=== PATIENT | female | born 2005 | race Caucasian/White ===

== ENCOUNTER 2024-04-28 08:59 | Emergency (ER) | payer OTHER, SELFPAY ==
--- NOTE | ~2024-04-28 | CT_ITS ---
EXAMINATION: CT ABDOMEN AND PELVIS WITHOUT CONTRAST CLINICAL INFORMATION: Left flank pain, stone versus hydro- COMPARISON: None available. TECHNIQUE: Multidetector volumetric imaging was performed of the abdomen and pelvis following without contrast. No oral contrast material.. Sagittal and coronal reformatted images were obtained on the technologist's workstation. This CT examination was performed using dose optimization techniques as appropriate, variously including the following: *Automated exposure control *Adjustment of mA and/or kV according to patient size (this includes techniques or standardized protocols for targeted exams where dose is matched to indication/reason for exam; i.e. extremities or head) *Use of iterative reconstruction technique DLP: 223 mGy-cm FINDINGS: LUNG BASES: The visualized lung bases are unremarkable. LIVER, GALLBLADDER, AND BILIARY TREE: The liver is normal in size, shape, and attenuation. No focal hepatic lesion or biliary ductal dilatation is present. The gallbladder is unremarkable with no evidence of radiopaque gallstones, gallbladder wall thickening, or obvious pericholecystic inflammatory changes. PANCREAS: Unremarkable SPLEEN: Unremarkable ADRENAL GLANDS: Unremarkable KIDNEYS AND URETERS: The kidneys are normal in size, shape, and attenuation. No hydronephrosis, hydroureter, or calculi seen. No perinephric stranding. BLADDER: Unremarkable GASTROINTESTINAL TRACT: The small and large bowel are unremarkable. The appendix is not visualized. ABDOMINAL WALL: No significant hernia is appreciated. LYMPH NODES: Normal VASCULAR: Unremarkable PELVIC VISCERA: Unremarkable OSSEOUS STRUCTURES: Unremarkable CT/CT abdomen pelvis wo IV con IMPRESSION: Unremarkable noncontrast abdominal and pelvic CT. In particular, no renal calculus or obstructive uropathy is evident. Fleischner guidelines were followed. Electronically signed by: Stephan Barnes MD 04/28/2024 10:13 AM [facility]
[2024-04-28 09:04] VITALS: BP 130/82; PULSE 100; RESP 18; TEMP 36.9; O2SAT 100; BMI 18.3
--- NOTE | 2024-04-28 09:20 | ED.FEMALEGU ---
HPI - Female Genitourinary General Chief complaint: Urogenital-Female Stated complaint: Kidney infection? Time Seen by Provider: 04/28/24 09:16 Source: patient Mode of arrival: ambulatory Limitations: no limitations History of Present Illness ED Provider: TASNEEM NOBLES PA-C HPI Narrative: 19 year old female presents to the ED today for evaluation of left flank pain since 04/22/24. States the pain is constant, ranging from 3/10 to 7/10 in severity. No radiation to abdomen or groin. Admits to assoc nausea and vomiting which began yesterday. She has been taking motrin with minimal relief. Last dose yesterday. She was evaluated at urgent care 2 days ago with urine negative for infection however was placed on an antibiotic anyway. Denies fever, chills, abdominal pain, dysuria, hematuria, vaginal discharge, diarrhea, constipation. She states she is not sexually active. Denies concern for STI or . No known sick contacts. Endorses history of right-sided renal stones however that pain was more severe than current left flank pain. She was able to pass previous stones. Related Data Previous Rx's ?Medication ?Instructions ?Recorded cefuroxime axetil 250 mg tablet 500 mg (2 x 250 mg) PO BID 7 days 04/28/24 #28 tabs ondansetron 4 mg disintegrating 4 mg PO DAILY PRN nausea and 04/28/24 tablet vomiting 5 days #7 tabs Allergies Allergy/AdvReac Type Severity Reaction Status Date / Time No Known Allergies Allergy Verified 04/28/24 09:06 Review of Systems Review of Systems: Constitutional: No fever, chills, fatigue, night sweats, weight changes ENT/Mouth: No ear pain, hearing loss, nasal congestion, sinus pain, rhinorrhea, sore throat Eyes: No eye pain, swelling, redness, vision changes, discharge Cardio: No chest pain, palpitations, RENTERIA, orthopnea, peripheral edema Pulm: No SOB, cough, sputum, wheezing, dyspnea, hemoptysis GI: No hematemesis, abdominal pain, diarrhea, constipation, hematochezia, melena, +N/V : No irregular bleeding, dysuria, frequency, urgency, hesitancy, hematuria, urinary flow changes, urinary incontinence or retention, +L flank pain MSK: No back pain, neck pain, joint pain, myalgias Skin: No lesions, rashes Neuro: No weakness, numbness, paresthesias, LOC, dizziness, headache Psych: No anxiety/panic, depression, SI/HI, AH/VH All other systems reviewed and are negative. [facility] Past Medical History Attestation statement: The following information was validated with the patient. Source: old records reviewed and nursing notes reviewed Social History Social History Smoked in Last 30 Days: No Use of substances other than those prescribed or required for medical reasons: No Advance Directives: No Patient : No Physical Exam Vital Signs: Vital Signs: Last Vital Signs Temp 98.3 F 04/28/24 13:03 Pulse 63 04/28/24 13:03 Resp 13 04/28/24 13:03 BP 99/63 04/28/24 13:03 Pulse Ox 99 04/28/24 13:03 O2 Del Method Room Air 04/28/24 13:03 BMI result Body Mass Index 18.3 vital signs stable, afebrile General: Well appearing, in no acute distress. Skin: Warm, dry, intact. No rashes or lesions. Head: Normocephalic, atraumatic. EENT: Hearing is intact b/l. Conjunctiva clear. PERRLA. EOM intact. Moist mucous membranes.? Neck: Supple without LAD Cardiac: Chest wall symmetric. RRR Lungs: Normal respiratory effort without accessory muscle use. CTA bilaterally Abdomen: Soft, non-tender, non-distended. No rebound tenderness or guarding. Positive BS x4. No CVAT b/l. Back: No midline spinous or paraspinal tenderness. No step off deformity. Ext: Upper and lower extremities atraumatic, without tenderness, deformity, swelling or erythema. Full ROM throughout. Neuro: AOx3. Normal speech. Strength 5/5 intact throughout. No saddle anesthesia. Sensation intact to light touch. NV intact distally. Ambulating with steady gait. Psych: Appropriate mood and affect. Responds appropriately to questions. Course Course Course Narrative: 1010 -- CBC without leukocytosis however there is a left shift. microcytica anemia, no priors to compare to. H&H above transfusion threashold. no concern for acute blood loss. chemistry without acute electrolyte abnormality requiring intervention. BUN WNL however creatinine elevated to 1.55. Liver enzymes WNL. Urine negative. Urinalysis pending. CT pending. > Toradol provider for pain control and Zofran given for nausea control. Will give 1 L of fluids for elevated creatinine. Concern for renal pathology. Will await CT results. 1325 -- CT abd/pelvis unremarkable. there is no evidence of renal stone/ hydronephrosis. negative for covid/ flu/ rsv. UA positive for infection. > on re-eval, patient reports improvement in pain/ nausea. she is tolerating crackers and gingerale. will send ceftin to pharmacy for treatment. zofran sent for nausea. Patient has remained stable throughout ED visit today. Discussed worrisome signs and symptoms and when to return to the ED. All questions answered at this time. Patient is agreeable with disposition and stable for discharge. Medications Administered Discontinued Medications Generic Name Dose Route Start Last Admin Trade Name Freq PRN Reason Stop Dose Admin Sodium Chloride 1,000 mls @ 999 mls/hr 04/28/24 10:00 04/28/24 11:51 Ns IV 04/28/24 11:00 Infused .Q1H1M LO Infusion Ketorolac Tromethamine 15 mg 04/28/24 09:46 04/28/24 10:18 Ketorolac Tromethamine 15 Mg/Ml Vial IVPUSH 04/28/24 09:47 15 mg ONCE ONE Administration Ondansetron HCl 4 mg 04/28/24 09:46 04/28/24 10:18 Ondansetron Hcl 4 Mg/2 Ml Vial IVPUSH 04/28/24 09:47 4 mg ONCE ONE Administration Ondansetron HCl 4 mg 04/28/24 12:44 04/28/24 13:06 Ondansetron Odt 4 Mg Tab.Rapdis TRANSLINGU 04/28/24 12:45 4 mg ONCE ONE Administration Medical Decision Making Medical Decision Making MDM Narrative: 19 year old female presents to the ED today for evaluation of left flank pain since 04/22/24. Vital signs are stable. She is nontoxic appearing and in NAD however is holding emesis bag. No active vomiting. On exam, abdomen is soft, nondistended, nontender to palpation, no rebound tenderness or guarding. There is no CVAT bilaterally. Normoactive bowel sounds x4. skin w/d/i. Differential diagnosis includes anemia, electrolyte abnormality, CALLI, dehydration, UTI, IUP, nephrolithiasis, renal colic, hydronephrosis, msk sprain/ strain, constipation, gastroenteritis. Lower suspicion for vertebral fracture, pyelonephritis, diverticulosis/ diverticulitis. Presentation not consistent with cauda equina, Guillain-[place], epidural abscess, cord compression, appendicitis, cholecystitis. Plan for labs, UA, CT, IVF, pain control, re-evaluation. Differential Diagnosis Differential Diagnoses: The differential diagnosis associated with the presentation includes as above. Admission/Observation Not indicated, Lab Data MDM Lab Attestation statement: I reviewed the patient's lab results. as above. 04/28/24 09:17 04/28/24 09:17 Labs: Lab Results 04/28/24 04/28/24 04/28/24 Range/Units 09:17 09:26 11:20 WBC 10.3 (4.8-10.8) X10*3/uL RBC 4.93 (4.20-5.50) X10*6/uL Hgb 11.2 L (12.0-16.0) g/dl Hct 36.5 L (37.0-47.0) % MCV 74.0 L (80.0-98.0) fL MCH 22.7 L (27.0-33.0) pg MCHC 30.7 L (31.0-35.0) g/dl RDW 15.7 (11.0-16.0) % Plt Count 341 (160-400) X10*3/uL MPV 10.0 (9.4-12.3) fL Immature Gran % (Auto) 0.3 (0.0-0.4) % Neut % (Auto) 81.6 H (45-73) % Lymph % (Auto) 8.0 L (20-40) % Nelson % (Auto) 9.6 (2-11) % Eos % (Auto) 0.3 (0-4) % Baso % (Auto) 0.2 (0-2) % Lymph # (Auto) 0.8 L (1.2-4.9) X10*3/uL Nelson # (Auto) 1.0 (0.1-1.2) X10*3/uL Eos # (Auto) 0.0 (0.0-0.4) X10*3/uL Baso # (Auto) 0.0 (0.0-0.2) X10*3/uL Abs Immat Gran (auto) 0.03 (0.00-0.03) X10*3/uL Absolute Neuts (auto) 8.4 H (2.0-8.3) x10*3/uL Absolute Nucleated RBC 0.000 (0.0-0.012) X10*3/uL Nucleated RBC % (auto) 0.0 (0.0-0.2) /100WBC Sodium 141 (135-145) mmol/L Potassium 3.9 (3.3-5.1) mmol/L Chloride 109 H (96-108) mmol/L Carbon Dioxide 22 (22-29) mmol/L Anion Gap 14 (12-20) BUN 15 (9-16) mg/dL Creatinine 1.55 H (0.5-1.4) mg/dL Estim Creat Clear Calc 38.9 Estimated GFR 43 Random Glucose 99 (60-115) mg/dL Calcium 10.1 (8.4-10.2) mg/dL Total Bilirubin 0.3 (0.0-1.0) mg/dL AST 23 (5-31) U/L ALT 7 (0-31) U/L Alkaline Phosphatase 58 (39-117) U/L Total Protein 8.1 H (6.5-8.0) g/dL Albumin 4.4 (3.5-5.0) g/dL Urine Color Cancelled Yellow Urine Appearance Cancelled Clear Urine pH Cancelled 6.5 Ur Specific [place] Cancelled 1.010 Urine Protein Cancelled 100 (2+) H Urine Glucose (UA) Cancelled Negative Urine Ketones Cancelled Negative Urine Blood Cancelled Negative Urine Nitrite Cancelled Negative Ur Leukocyte Esterase Cancelled Small (1+) H Urine RBC 0-2 (0-2) /HPF Urine WBC 21-50 H (0-5) /HPF Ur Squamous Epith Cells 11-20 (0-2) /HPF Urine Bacteria 4+ (None Seen) Hyaline Casts 3-5 (0-2) /LPF Urine Test NEGATIVE (NEGATIVE) Influenza Type A (PCR) (Negative) Influenza Type B (PCR) (Negative) RSV RNA Qual (PCR) (Negative) SARS-CoV-2 RNA (RT-PCR) (Negative) 04/28/24 Range/Units 11:56 WBC (4.8-10.8) X10*3/uL RBC (4.20-5.50) X10*6/uL Hgb (12.0-16.0) g/dl Hct (37.0-47.0) % MCV (80.0-98.0) fL MCH (27.0-33.0) pg MCHC (31.0-35.0) g/dl RDW (11.0-16.0) % Plt Count (160-400) X10*3/uL MPV (9.4-12.3) fL Immature Gran % (Auto) (0.0-0.4) % Neut % (Auto) (45-73) % Lymph % (Auto) (20-40) % Nelson % (Auto) (2-11) % Eos % (Auto) (0-4) % Baso % (Auto) (0-2) % Lymph # (Auto) (1.2-4.9) X10*3/uL Nelson # (Auto) (0.1-1.2) X10*3/uL Eos # (Auto) (0.0-0.4) X10*3/uL Baso # (Auto) (0.0-0.2) X10*3/uL Abs Immat Gran (auto) (0.00-0.03) X10*3/uL Absolute Neuts (auto) (2.0-8.3) x10*3/uL Absolute Nucleated RBC (0.0-0.012) X10*3/uL Nucleated RBC % (auto) (0.0-0.2) /100WBC Sodium (135-145) mmol/L Potassium (3.3-5.1) mmol/L Chloride (96-108) mmol/L Carbon Dioxide (22-29) mmol/L Anion Gap (12-20) BUN (9-16) mg/dL Creatinine (0.5-1.4) mg/dL Estim Creat Clear Calc Estimated GFR Random Glucose (60-115) mg/dL Calcium (8.4-10.2) mg/dL Total Bilirubin (0.0-1.0) mg/dL AST (5-31) U/L ALT (0-31) U/L Alkaline Phosphatase (39-117) U/L Total Protein (6.5-8.0) g/dL Albumin (3.5-5.0) g/dL Urine Color Urine Appearance Urine pH Ur Specific [place] Urine Protein Urine Glucose (UA) Urine Ketones Urine Blood Urine Nitrite Ur Leukocyte Esterase Urine RBC (0-2) /HPF Urine WBC (0-5) /HPF Ur Squamous Epith Cells (0-2) /HPF Urine Bacteria (None Seen) Hyaline Casts (0-2) /LPF Urine Test (NEGATIVE) Influenza Type A (PCR) NEGATIVE (Negative) Influenza Type B (PCR) NEGATIVE (Negative) RSV RNA Qual (PCR) NEGATIVE (Negative) SARS-CoV-2 RNA (RT-PCR) NEGATIVE (Negative) Independent Interpretation I performed an independent interpretation of an: CT Scan Interpretation: ct abd/pelvis w/o obstructing stone Radiology Impression Discussion of test interpretation with radiology: I have reviewed the radiologist's reading. Radiologist Impression: EXAMINATION: CT ABDOMEN AND PELVIS WITHOUT CONTRAST CLINICAL INFORMATION: Left flank pain, stone versus hydro- COMPARISON: None available. TECHNIQUE: Multidetector volumetric imaging was performed of the abdomen and pelvis following without contrast. No oral contrast material.. Sagittal and coronal reformatted images were obtained on the technologist's workstation. This CT examination was performed using dose optimization techniques as appropriate, variously including the following: *Automated exposure control *Adjustment of mA and/or kV according to patient size (this includes techniques or standardized protocols for targeted exams where dose is matched to indication/reason for exam; i.e. extremities or head) *Use of iterative reconstruction technique DLP: 223 mGy-cm FINDINGS: LUNG BASES: The visualized lung bases are unremarkable. LIVER, GALLBLADDER, AND BILIARY TREE: The liver is normal in size, shape, and attenuation. No focal hepatic lesion or biliary ductal dilatation is present. The gallbladder is unremarkable with no evidence of radiopaque gallstones, gallbladder wall thickening, or obvious pericholecystic inflammatory changes. PANCREAS: Unremarkable SPLEEN: Unremarkable ADRENAL GLANDS: Unremarkable KIDNEYS AND URETERS: The kidneys are normal in size, shape, and attenuation. No hydronephrosis, hydroureter, or calculi seen. No perinephric stranding. BLADDER: Unremarkable GASTROINTESTINAL TRACT: The small and large bowel are unremarkable. The appendix is not visualized. ABDOMINAL WALL: No significant hernia is appreciated. LYMPH NODES: Normal VASCULAR: Unremarkable PELVIC VISCERA: Unremarkable OSSEOUS STRUCTURES: Unremarkable CT/CT abdomen pelvis wo IV con IMPRESSION: Unremarkable noncontrast abdominal and pelvic CT. In particular, no renal calculus or obstructive uropathy is evident. Fleischner guidelines were followed. Electronically signed by: Stephan Barnes MD 04/28/2024 10:13 AM [facility] [place] Prescription Management I considered prescription management with: Antibiotic (ceftin) and Other (zofran) Social Determinants Patient?s care significantly limited by Social Determinants of Health including: Other Social Determinant of Health Critical Care Time Critical Care Time Critical Care Time: No Discharge Plan Discharge Clinical Impression: Urinary tract infection Patient Disposition: Home, Self-Care Instructions: Urinary Tract Infection in Women (ED) Additional Instructions: Your blood work today is reassuring. There was a slight elevation in your kidney function likely secondary to dehydration. You were provided with IV fluids in ED today. You tested negative for covid, flu, rsv. Your urine test was negative. Your urine shows infection. Ceftin is an antibiotic that has been sent to your pharmacy. Take this as prescribed to completion do treat infection. Zofran is a medication that has been sent to your pharmacy for you to take for nausea. Take tylenol as needed for pain/ discomfort. Follow up with PCP. If you do not have one, a referral has been provided. please call them to establish care. they will not call you. return with new or worsening symptoms. in the case of an emergency call 911. Prescriptions: New cefuroxime axetil 250 mg tablet 500 mg PO BID 7 Days Qty: 28 0RF ondansetron 4 mg tablet,disintegrating 4 mg PO DAILY PRN (Reason: nausea and vomiting) 5 Days Qty: 7 0RF Referrals: [facility] Family Medicine [Provider Group] [facility] [Provider Group] [facility] [Provider Group] Stand Alone Forms: Work/School Release Print Language: Greenlandic
[2024-04-28 09:29] LABS: MANUAL DIFF FLAG NO
[2024-04-28 09:31] LABS: Basophils Percent Auto 0.2 % (0-2); Eosinophils Percent Auto 0.3 % (0-4); Hematocrit 36.5 % (37.0-47.0); Hemoglobin 11.2 g/dl (12.0-16.0); Imm Gran Abs Auto 0.03 X10*3/uL (0.00-0.03); Imm Gran Pct Auto 0.3 % (0.0-0.4); Lymphocytes Absolute Auto 0.8 X10*3/uL (1.2-4.9); Mean Corpuscular HGB Conc 30.7 g/dl (31.0-35.0); Mean Corpuscular Hemoglobin 22.7 pg (27.0-33.0); Monocytes Percent Auto 9.6 % (2-11); Neutrophils Absolute Auto 8.4 x10*3/uL (2.0-8.3); Neutrophils Percent Auto 81.6 % (45-73); Platelet Count 341 X10*3/uL (160-400); Red Blood Count 4.93 X10*6/uL (4.20-5.50); Red Cell Distribution Width 15.7 % (11.0-16.0); White Blood Count 10.3 X10*3/uL (4.8-10.8)
[2024-04-28 09:32] LABS: UPreg QC Valid YES; Urine Pregnancy NEGATIVE (NEGATIVE)
[2024-04-28 09:46] LABS: Alanine Aminotransferase 7 U/L (0-31); Albumin Level 4.4 g/dL (3.5-5.0); Alkaline Phosphatase 58 U/L (39-117); Anion Gap 14 (12-20); Aspartate Amino Transferase 23 U/L (5-31); Bilirubin Total 0.3 mg/dL (0.0-1.0); Blood Urea Nitrogen 15 mg/dL (9-16); Calcium 10.1 mg/dL (8.4-10.2); Carbon Dioxide 22 mmol/L (22-29); Chloride 109 mmol/L (96-108); Creatinine Clr Calc Pharmacy 38.9; Estimated Glomerular Filt Rate 43; Glucose Random 99 mg/dL (60-115); Potassium 3.9 mmol/L (3.3-5.1); Sodium 141 mmol/L (135-145); Total Protein 8.1 g/dL (6.5-8.0)
[2024-04-28] MEDS: ondansetron HCL 4 MG/2 ML VIAL IVPUSH (10:18)
[2024-04-28] MEDS: 0.9 % Sodium Chloride 1,000 ML 999 ML IV (10:18)
[2024-04-28] MEDS: Ketorolac Tromethamine 15 MG/ML VIAL IVPUSH (10:18)
[2024-04-28 11:06] VITALS: BP 113/71; PULSE 60; RESP 18; TEMP 37.1; O2SAT 100
[2024-04-28 11:29] LABS: Appearance Urine Clear; Color Urine Yellow; Glucose Urine UA Negative (Negative); Leukocyte Esterase Urine Small (1+) (Negative); Nitrite Urine Negative (Negative); PH 6.5 (5.0-9.0); UMIC TRIGGER UACC YES; Urine Blood Negative (Negative); Urine Ketones Negative (Negative); Urine Protein 100 (2+) mg/dL (Neg-Trace)
[2024-04-28 11:43] LABS: Bacteria Urine 4+ (None Seen); RBC Urine 0-2 /HPF (0-2); UACC Culture Trigger YES; WBC Urine 21-50 /HPF (0-5)
[2024-04-28 13:03] VITALS: BP 99/63; PULSE 63; RESP 13; TEMP 36.8; O2SAT 99
[2024-04-28 13:04] LABS: Influenza A PCR NEGATIVE (Negative); Influenza B PCR NEGATIVE (Negative); Resp Syncy Virus RNA Qual PCR NEGATIVE (Negative); SARS COV2 PCR INHOUSE NEGATIVE (Negative)
[2024-04-28] MEDS: Ondansetron ODT 4 MG TAB.RAPDIS TRANSLINGU (13:06)
[2024-04-28 13:41] VITALS: BP 99/63; PULSE 63; RESP 13; TEMP 36.8; O2SAT 99
== END 2024-04-28 13:42 | disposition home or self-care (01) ==
PROVIDERS: Physician Assistant Medical; Emergency Provider Emergency Medicine
DX: N39.0 Urinary tract infection, site not specified (principal); R11.0 Nausea; R10.2 Pelvic and perineal pain; Z03.818 Encounter for observation for suspected exposure to other biological agents ruled out; Z79.899 Other long term (current) drug therapy
CPT/HCPCS: 0241U; 36415; 74176; 80053; 81001; 81025; 85025; 87086; 96361; 96374; 96375; 99284; J1885; J2405

== ENCOUNTER 2024-07-18 21:09 | Emergency (ER) | payer OTHER, SELFPAY ==
[2024-07-18 21:16] VITALS: BP 150/87; PULSE 90; O2SAT 100
[2024-07-18 21:18] VITALS: BP 118/73; PULSE 91; RESP 16; O2SAT 100; BMI 19.1
--- NOTE | 2024-07-18 21:39 | ED_ITS ---
HPI - Psych General Chief Complaint: Psychiatric Symptoms Stated Complaint: si Time Seen by Provider: 07/18/24 21:22 Source: patient and EMS Mode of arrival: EMS Limitations: no limitations History of Present Illness ED Provider: Dr. Rosio Buitrago HPI Narrative: Patient comes to the emergency room via ambulance from home, patient complaining of suicide attempt by using antibiotics. Patient states that she used ciprofloxacin, used approximately 10 tablets which she had left over from a previous kidney infection. Patient states that this is the 1st time that she got herself to actually hurt herself. Patient states that she has previous history of anxiety. Patient states that she had an argument with her father earlier today. At this time, patient complaining of nausea. Patient denies vomiting diarrhea or abdominal pain. Related Data Previous Rx's ?Medication ?Instructions ?Recorded cefuroxime axetil 250 mg tablet 500 mg (2 x 250 mg) PO BID 7 days 04/28/24 #28 tabs ondansetron 4 mg disintegrating 4 mg PO DAILY PRN nausea and 04/28/24 tablet vomiting 5 days #7 tabs Allergies Allergy/AdvReac Type Severity Reaction Status Date / Time No Known Allergies Allergy Verified 07/18/24 21:19 Review of Systems Review of Systems: Constitutional : No Weight loss, No Fever, No Chills, No Night Sweats, No Fatigue, No Malaise ENT/Mouth : No Hearing loss, No Ear Pain, No Nasal Congestion, No Sinus Pain, No Hoarseness, No sore throat, No Rhinorrhea, No Swallowing Difficulty Eyes: No Eye Pain, No Swelling, No Redness, No Foreign Body, No Discharge, No Vision Changes Cardiovascular : No Chest Pain, No SOB, No Dyspnea on Exertion, No Orthopnea, No Edema, No Palpitations Respiratory : No Cough, No Sputum, No Wheezing, No Smoke Exposure, No Dyspnea Gastrointestinal : Complaining of Nausea, No Vomiting, No Diarrhea, No Constipation, No abdominal Pain, No Hematochezia, No Melena Genitourinary : no irregular bleeding, No Dysuria, No Urinary Frequency, No Hematuria, No Urinary Incontinence, No Urgency, No Flank Pain, No Urinary Flow Changes, No Hesitancy Musculoskeletal : No joint pain, No Myalgias, No Joint Swelling Skin : No Skin Lesions, No rash Neuro : No Weakness, No Numbness, No Paresthesias, No Loss of Consciousness, No Dizziness, No Headache Psych : Complaining of anxiety, depression, suicide attempt, no HI Heme/Lymph: No Bruising, No Bleeding,No Lymphadenopathy Endocrine : No Polyuria, No Polydipsia, No Temperature Intolerance [facility] Past Medical History Medical History (Updated 07/18/24 @ 21:47 by Rosio Buitrago MD) Anxiety Social History Social History Do you have a plan to hurt others: No Plan Physical Exam Vital Signs: Vital Signs: Last Vital Signs Pulse 91 07/18/24 21:18 Resp 16 07/18/24 21:18 BP 118/73 07/18/24 21:18 Pulse Ox 100 07/18/24 21:18 O2 Del Method Room Air 07/18/24 21:18 BMI result Body Mass Index 19.1 Const: Other: Appearance: Alert. Oriented X3. No acute distress. Eyes: Pupils equal, round and reactive to light. ENT: Pharynx normal. Neck: Normal inspection. Neck supple. No lymph nodes noted. No crepitus CVS: Normal heart rate and rhythm. Pulses normal. Normal S1 and S2 Respiratory: No respiratory distress. Breath sounds normal. No Wheezing. No rales Abdomen: Soft and nontender. No rigidity. No distention. Skin: Skin warm and dry. Normal skin color. Normal skin turgor. Extremities: No lower extremity edema. No Lacerations. No Rash Neuro: Oriented X 3. No motor deficit. No sensory deficit. Moving all extremities. No slurred speech. CN 2 through 12 grossly intact Psych: calm, cooperative, flat affect Course Course Course Narrative: All of patient's labs pending Poison control has been contacted Care team consult pending Patient on a Section 12 Physician observation started at 21:45 Medical Decision Making Differential Diagnosis Differential Diagnoses: The differential diagnosis associated with the presentation includes (Anxiety, depression polysubstance abuse suicidal ideation) Admission/Observation Consideration of admission/observation: Escalation of care including admission/observation considered (Patient is waiting to be seen by the care team) Discharge Plan Discharge Clinical Impression: Suicidal ideation Patient Disposition: Still a Patient Prescriptions: No Action cefuroxime axetil 250 mg tablet 500 mg PO BID 7 Days Qty: 28 0RF ondansetron 4 mg tablet,disintegrating 4 mg PO DAILY PRN (Reason: nausea and vomiting) 5 Days Qty: 7 0RF Print Language: Urdu
[2024-07-18 21:53] LABS: Appearance Urine Turbid; Color Urine Yellow; Glucose Urine UA Negative (Negative); Leukocyte Esterase Urine Negative (Negative); Nitrite Urine Negative (Negative); Specific Gravity - Urine 1.025 (1.005-1.025); UMIC TRIGGER UACC YES; Urine Blood Small (1+) (Negative); Urine Ketones 15 mg/dL (Negative); Urine Protein 30 (1+) mg/dL (Neg-Trace)
[2024-07-18 21:56] LABS: UPreg QC Valid YES; Urine Pregnancy NEGATIVE (NEGATIVE)
[2024-07-18 21:58] LABS: MANUAL DIFF FLAG NO
[2024-07-18 22:00] LABS: Basophils Percent Auto 0.6 % (0-2); Eosinophils Percent Auto 0.6 % (0-4); Hematocrit 32.2 % (37.0-47.0); Hemoglobin 9.9 g/dl (12.0-16.0); Imm Gran Abs Auto 0.01 X10*3/uL (0.00-0.03); Imm Gran Pct Auto 0.2 % (0.0-0.4); Lymphocytes Absolute Auto 1.3 X10*3/uL (1.2-4.9); Lymphocytes Percent Auto 24.3 % (20-40); Mean Corpuscular HGB Conc 30.7 g/dl (31.0-35.0); Mean Corpuscular Hemoglobin 22.3 pg (27.0-33.0); Mean Corpuscular Volume 72.5 fL (80.0-98.0); Mean Platelet Volume 9.8 fL (9.4-12.3); Monocytes Absolute Auto 0.6 X10*3/uL (0.1-1.2); Monocytes Percent Auto 12.1 % (2-11); Neutrophils Absolute Auto 3.2 x10*3/uL (2.0-8.3); Neutrophils Percent Auto 62.2 % (45-73); Platelet Count 349 X10*3/uL (160-400); Red Blood Count 4.44 X10*6/uL (4.20-5.50); Red Cell Distribution Width 14.8 % (11.0-16.0); White Blood Count 5.1 X10*3/uL (4.8-10.8)
--- NOTE | 2024-07-18 22:02 | ECG_ITS ---
Test Reason : attempted od Blood Pressure : */* mmHG Vent. Rate : 68 BPM Atrial Rate : 68 BPM P-R Int : 138 ms QRS Dur : 100 ms QT Int : 396 ms P-R-T Axes : 60 46 45 degrees QTcB Int : 421 ms Normal sinus rhythm with sinus arrhythmia Normal ECG No previous ECGs available Referred By: Generic ED Physician Electronically Signed By: COLE KELLEY MD
[2024-07-18 22:04] LABS: Amphetamine Screen Urine Not Detected (Not Detect); Barbiturates, Urine Not Detected (Not Detect); Benzodiazepines Screen Urine Not Detected (Not Detect); Buprenorphine Scr Not Detected (Not Detect); Cannabinoid Screen Urine POSITIVE (Not Detect); Cocaine Screen Urine Not Detected (Not Detect); Fentanyl, urine Not Detected (Not Detect); Methadone Screen, Urine Not Detected (Not Detect); Opiate Screen Urine Not Detected (Not Detect); Oxycodone Screen Urine Not Detected (Not Detect); Phencyclidine Screen Urine Not Detected (Not Detect)
[2024-07-18 22:07] LABS: Bacteria Urine None Seen (None Seen); Hyaline Casts Urine 0-2 /LPF (0-2); WBC Urine 0-5 /HPF (0-5)
[2024-07-18 22:16] LABS: Anion Gap 12 (12-20)
[2024-07-18 22:19] LABS: Alanine Aminotransferase 7 U/L (0-31); Albumin Level 4.3 g/dL (3.5-5.0); Alkaline Phosphatase 45 U/L (39-117); Aspartate Amino Transferase 20 U/L (5-31); Bilirubin Direct 0.1 mg/dL (0.0-0.5); Bilirubin Total 0.3 mg/dL (0.0-1.0); Blood Urea Nitrogen 11 mg/dL (9-16); Calcium 9.2 mg/dL (8.4-10.2); Carbon Dioxide 22 mmol/L (22-29); Chloride 110 mmol/L (96-108); Creatinine Clr Calc Pharmacy 108.5; Estimated Glomerular Filt Rate > 60; Ethanol < 10 mg/dL; Glucose Random 79 mg/dL (60-115); Magnesium 1.8 mg/dL (1.6-2.6); Potassium 3.7 mmol/L (3.3-5.1); Sodium 140 mmol/L (135-145)
[2024-07-18 22:24] LABS: Acetaminophen LAB < 3 mcg/mL (<30); Salicylate < 5.0 mg/dL (15-30)
--- OUTSIDE RECORDS SUMMARY | 2024-07-18 22:45 | XMS_ITS | Data Portability ---
Author Organization JACQUIE Calvillo s, [address] Address [address] [place] [address] Assessment No assessment recorded. Plan of Treatment Reminders Order Date Submit Date Provider Last Modified By Organization Details Last Modified Time Details Appointments None recorded. Lab rapid flu (A+B) 2021 022 [email or web address] 1 _[facility], [address] [place] [address], [id number], 19:59:27 rapid SARS CoV 2 Ag, QL IA, respiratory specimen 2021 022 [email or web address] 1 [facility], [address] [place] [address], [id number], 19:59:27 mononucleos is, heterophile Ab, blood 2021 022 [email or web address] 1 [facility], [address] [place] [address], [id number], 19:59:27 Referral None recorded. Procedures None recorded. Surgeries None recorded. Imaging XR, foot, 3 or more view 2022 023 [place] [facility], [address] [place] [address], [place], [address], 20:35:53 Medication Orders Bactrim DS 800 mg-[address] tablet [address] [id number], [address] [facility] [place], [address], 18:16:30 Patient TargetsNo targets recorded. Patient Instructions Encounter Date Encounter Id Patient Instructions Last Modified By Organization Details Last Modified Time 06/14/2022 [id number] back spasm: care instructions [email or web address] Not available 06/14/2022 19:59:27 cellulitis: care instructions [email or web address] Not available 06/14/2022 20:00:50 ingrown toenail: care instructions [email or web address] Not available 06/14/2022 20:00:50 costochondritis: care instructions [email or web address] Not available 06/14/2022 19:59:27 viral respirator y infection: care instructions [email or web address] Not available 06/14/2022 19:59:27 08/18/2022 [id number] Overview Foot injuries that cause pain and swelling are fairly common. Almost all sports or home repair projects can cause a misstep that ends up as foot pain. Normal wear and tear, especially as you get older, also can cause foot pain. Most minor foot injuries will heal on their own, and home treatment is usually all you need to do. If you have a severe injury, you may need tests and treatment. Follow-up care is a maddox part of your treatment and safety. Be sure to make and go to all appointments, and call your doctor or nurse advice line (811 in most provinces and territories) if you are having problems. It's also a good idea to know your test results and keep a list of the medicines you take. How can you care for yourself at home? Take pain medicines exactly as directed. If the doctor gave you a prescription medicine for pain, take it as prescribed. If you are not taking a prescription pain medicine, ask your doctor if you can take an cqer-eru-dbatswl medicine. Rest and protect your foot. Take a break from any activity that may cause pain. Put ice or a cold pack on your foot for 10 to 20 minutes at a time. Put a thin cloth between the ice and your skin. Prop up the sore foot on a pillow when you ice it or anytime you sit or lie down during the next 3 days. Try to keep it above the level of your heart. This will help reduce swelling. Your doctor may recommend that you wrap your foot with an elastic bandage. Keep your foot wrapped for as long as your doctor advises. If your doctor recommends crutches, use them as directed. Wear roomy footwear. As soon as pain and swelling end, begin gentle exercises of your foot. Your doctor can tell you which exercises will help. When should you call for help? Call 911 anytime you think you may need emergency care. For example, call if: Your foot turns pale, white, blue, or cold. Call your doctor or nurse advice line now or seek immediate medical care if: You cannot move or stand on your foot. Your foot looks twisted or out of its normal position. Your foot is not stable when you step down. You have signs of infection, such as: Increased pain, swelling, warmth, or redness. Red streaks leading from the sore area. Pus draining from a place on your foot. A fever. Your foot is numb or tingly. Watch closely for changes in your health, and be sure to contact your doctor or nurse advice line if: You do not get better as expected. You have bruises from an injury that last longer than 2 weeks. [email or web address] Not available 08/18/2022 19:16:25 Reason for Referral None Reported. Results Created Date Observation Date Name Description Value Unit Range Abnormal Flag Note LastModifiedBy Organization Detail LastModifiedTime 06/14/20 22 06/14/2022 rapid SARS CoV 2 Ag, QL IA, respi rator y speci men Unknown Analyte Normal =Negat deonte Not Available [address], [address], 06/14/2022 19:14:37 06/14/20 22 06/14/2022 rapid SARS CoV 2 Ag, QL IA, respi rator y speci men Unknown Analyte negati ve Not Available [address] [place], [address], 06/14/2022 19:14:37 06/14/20 22 06/14/2022 rapid flu (A+B) Unknown Analyte Normal = Negati ve Not Available [address], [place], [address], 06/14/2022 19:14:31 06/14/20 22 06/14/2022 rapid flu (A+B) Unknown Analyte Normal = Negati ve Not Available [address] [place] [address], [place], [address], 06/14/2022 19:14:31 06/14/20 22 06/14/2022 rapid flu (A+B) Unknown Analyte negati ve Not Available [address] [place] [address], [place], [address], 06/14/2022 19:14:31 06/14/20 22 06/14/2022 rapid flu (A+B) Unknown Analyte negati ve Not Available [address] [place] [address], [address], 06/14/2022 19:14:31 06/14/20 22 06/14/2022 monon ucleo sis, heter ophil e Ab, blood Unknown Analyte Normal = Negati ve Not Available [address] [place] [address], [place], [address], 06/14/2022 19:14:44 06/14/20 22 06/14/2022 monon ucleo sis, heter ophil e Ab, blood Unknown Analyte negati ve Not Available [address] [place] [address], [address], 06/14/2022 19:14:44 08/18/19 23 08/18/2022 XR, foot, 3 or more view No observ ation record ed. [email or web address] [facility] [address] [facility] [place], [address], 08/19/2022 08:02:21 Result Notes None recorded. Problems No Known Problems Procedures Surgical History Date Name Laterality Status Provider Name and Address Organization Details Recorded Time 3 CRUTCHES-UND ERARM completed Alessandro Hilton, [employer]PERVIS[employer]TING [address], [place], [address], [place] - [facility] 08/18/2022 19:16:02 3 Imtiaz Bandage completed Alessandro Hilton NP [address], [place], [address], [place] - [facility] 08/18/2022 19:15:36 Imaging Results Imaging Date Name Status LastModified by Organiz ation Details LastModified Time 08/18/2022 XR, foot, 3 or more view completed [email or web address] [facility] [address] [place], [address], 08/19/2022 08:02:21 Procedure Notes None recorded. Medical Equipment None Reported. Allergies No known drug allergies Medications Not known to be on any medication Vitals Date Recorded Body height Provider Name an d Address Organization Details Last Updated DateTime 06/14/2022 152.4 cm Erica [facility] [place] - [facility] 1 08/15/2021 19:13:09 Date Recorded Body mass index (BMI) Body mass index (BMI) Percentile per age and sex Provider Name and Address Organization Details Last Updated DateTime 06/14/2022 17.9 kg/m2 7 % Erica Wilson PA - [facility] 06/14/2022 19:13:14 Date Recorded Body weight Provider Name an d Address Organization Details Last Updated DateTime 06/14/2022 10165.7 g Erica [facility] - [facility] 1 08/15/2021 19:13:15 Date Recorded Oxygen saturation Oxygen saturation in Arterial blood by Pulse oximetry Provider Name and Address Organization Details Last Updated DateTime 06/14/2022 99 % 99 % Erica Wilson PA - [facility] 06/14/2022 19:13:23 Date Recorded Pain severity - 0-10 verbal numeric rating [Score] - Reported Provider Name and Address Organization Details Last Updated DateTime 06/14/2022 6 [facility]a [facility] - [facility] 1 08/15/2021 19:13:29 Date Recorded Heart rate Provider Name an d Address Organization Details Last Updated DateTime 06/14/2022 79 /min Erica [facility] - [facility] 1 08/15/2021 19:13:32 Date Recorded Respiratory rate Provider Name a nd Address Organization Details Last Updated DateTime 06/14/2022 20 /min Erica Wilson PA - [facility] 1 08/15/2021 19:13:33 Date Recorded Body temperature Provider Name a nd Address Organization Details Last Updated DateTime 06/14/2022 98.4 [degF] Erica Wilson PA - [facility] 06/14/2022 19:13:37 Date Recorded Body height Provider Name an d Address Organization Details Last Updated DateTime 08/18/2022 152.4 cm Candie Jolley PA - [facility] 08/18/2022 18:16:07 Date Recorded Body mass index (BMI) Body mass index (BMI) Percentile per age and sex Provider Name and Address Organization Details Last Updated DateTime 08/18/2022 17.8 kg/m2 6 % Candie Hernandezlingmagdaleno PA - [facility] 08/18/2022 18:16:59 Date Recorded Body weight Provider Name an d Address Organization Details Last Updated DateTime 08/18/2022 43393.91 g Candielucius Woodmagdaleno PA - [facility] 08/18/2022 18:17:00 Date Recorded Pain severity - 0-10 verbal numeric rating [Score] - Reported Provider Name and Address Organization Details Last Updated DateTime 08/18/2022 7 Candie Hernandezlingmagdaleno PA - [facility] 08/18/2022 18:17:14 Date Recorded Oxygen saturation Oxygen saturation in Arterial blood by Pulse oximetry Provider Name and Address Organization Details Last Updated DateTime 08/18/2022 99 % 99 % Candie Jolley PA - [facility] 08/18/2022 18:18:55 Date Recorded Heart rate Provider Name an d Address Organization Details Last Updated DateTime 08/18/2022 76 /min Candie Hernandezlingmagdaleno PA - [facility] 08/18/2022 18:18:57 Date Recorded Respiratory rate Provider Name a nd Address Organization Details Last Updated DateTime 08/18/2022 18 /min Candie Jolley PA - [facility] 08/18/2022 18:18:59 Date Recorded Body temperature Provider Name a nd Address Organization Details Last Updated DateTime 08/18/2022 98.7 [degF] Candie Jolley PA - [facility] 08/18/2022 18:19:04 Date Recorded Systolic blood pressure Diastolic blood pressure Provider Name and Address Organization Details Last Updated DateTime 06/14/2022 122 mm[Hg] 76 mm[Hg] Erica Rachel PA - [facility] 06/14/2022 19:13:21 Date Recorded Systolic blood pressure Diastolic blood pressure Provider Name and Address Organization Details Last Updated DateTime 08/18/2022 101 mm[Hg] 69 mm[Hg] Candie Jolley PA - [facility] 08/18/2022 18:18:51 Social History Question Answer Notes LastModified by Organizat ion Details LastModified Time Tobacco Smoking Status Never Smoker Ericabette Carbajalkarmen fuentes PA - [facility] 06/14/2022 19:14:23 What Is Your Level Of Alcohol Consumption? None Information not available 06/14/2022 Have You Had Direct Contact, Or Contact During Intimacy, With Monkeypox Rash, Scabs, Or Body Fluids From A Person With Monkeypox? No Information not available 06/14/2022 Do You Use Any Illicit Or Recreational Drugs? No Information not available 06/14/2022 Have You Recently Traveled Abroad? No Information not available 06/14/2022 Do You Or Have You Ever Used Any Other Forms Of Tobacco Or Nicotine? No Information not available 06/14/2022 Sex: Unknown Functional Status None recorded. Mental Status None recorded. Family History Relationship Description Onset Age of this Age Resolved Age Notes LastModified by Organization Details LastModified Time Father No current problems or disability Not available 06/14 19:14:17 Mother No current problems or disability Not available 06/14 19:14:17 Medical History No medical history recorded. Gynecological HistoryNo gynecological history recorded. Obstetrics History GPAL:G 0 P 0 0 0 0 Immunizations Vaccine Type Date Status Note Provider Nam e and Address Organization Details Recorded Time COVID-19, mRNA, LNP-S, PF, 30 mcg/0.3 mL dose 1 completed Erica Wilson null, PA - [facility] 06/14/2022 19:13:56 COVID-19, mRNA, LNP-S, PF, 30 mcg/0.3 mL dose 1 completed Erica Wilson null, PA - [facility] 06/14/2022 19:13:56 HPV9 9 completed Candie Monfette null, PA - [facility] 08/18/2022 18:16:12 HPV9 8 completed Candie Monfette null, PA - [facility] 08/18/2022 18:16:12 MMR 9 completed Candie Monfette null, PA - [facility] 08/18/2022 18:16:12 MMR 5 completed Candie Monfette null, PA - [facility] 08/18/2022 18:16:12 Tdap 6 completed Candie Monfette null, PA - [facility] 08/18/2022 18:16:12 varicella 5 completed Candie Monfette null, PA - [facility] 08/18/2022 18:16:12 varicella 9 completed Candie Monfette null, PA - [facility] 08/18/2022 18:16:12 Hep B, adolescent or pediatric 4 completed Candie Monfette null, PA - [facility] 08/18/2022 18:16:12 Hep A, ped/adol, 2 dose 7 completed Candie Monfette null, PA - [facility] 08/18/2022 18:16:12 Hep A, ped/adol, 2 dose 6 completed Candie Monfette null, PA - [facility] 08/18/2022 18:16:12 Hib (PRP-T) 5 completed Candie Monfette null, PA - [facility] 08/18/2022 18:16:12 Hib (PRP-T) 5 completed Candie Monfette null, PA - [facility] 08/18/2022 18:16:12 Hib (PRP-T) 4 completed Candie Monfette null, PA - [facility] 08/18/2022 18:16:12 Hib (PRP-T) 5 completed Candie Monfette null, PA - [facility] 08/18/2022 18:16:12 meningococcal MCV4P 0 completed Candie Monfette null, PA - [facility] 08/18/2022 18:16:12 DTaP 6 completed Candie Monfette null, PA - [facility] 08/18/2022 18:16:12 DTaP 9 completed Candei Monfette null, PA - [facility] 08/18/2022 18:16:13 meningococcal MCV4, unspecified formulation 6 completed Candie Monfette null, PA - [facility] 08/18/2022 18:16:13 DTaP-Hep B-IPV 5 completed Candie Monfette null, PA - [facility] 08/18/2022 18:16:13 DTaP-Hep B-IPV 5 completed Candie Monfette null, PA - [facility] 08/18/2022 18:16:13 DTaP-Hep B-IPV 4 completed Candie Monfette null, PA - [facility] 08/18/2022 18:16:13 Past Encounters Encounter ID Performer Location Encounter Start Date Encounter Closed Date Diagnosis/Indication Diagnosis SNOMED-CT Code Diagnosis ICD10 Code Diagnosis Note [id number] [address] [address] 03/30/2020 09:27:45 03/30/2020 12:11:25 [id number] BIRDIE GOLDBERG MD [facility] [address] [place] [address] 06/14/2022 18:16:21 06/14/2022 20:03:24 Fatigue 82049417 R53.83 Acute uppe r respiratory infection 64723447 J06.9 If your symptoms worsen or persist you should be re-evaluat ed. Drink plenty of fluids Return to [facility] or see your primary care physician if your symptoms fail to improve in 5-7 days. You should follow up sooner if your symptoms worsen significan tly or if you develop new symptoms that concern you. Spasm of back muscles 20 2145967 M62.830 Apply a warm compress to the affected area for 15-20 minutes at a time up to 4 times a day. If your symptoms worsen or persist you should be re-evaluat ed. Follow up with your primary doctor for further evaluation in 5-10 days if your symptoms are not improving. Costal chondritis 136939 04 M94.0 You can take ibuprofen for your symptoms as directed on the bottle. Make sure to take it with food. Be careful about how much you take in one day. Taking more than the recommende d amount can cause stomach and kidney problems. If your symptoms worsen or persist you should be re-evaluat ed. Follow up with your primary doctor for further evaluation in 5-10 days if your symptoms are not improving. Call 911 or proceed to nearest Emergency Department if you deveolop shortness of breath, chest pain, or other symptoms that concern you. Cellulitis of toe of right foot [id number] L03.031 If your symptoms worsen or persist you should be re-evaluat ed. Return to [facility] or see your primary care physician if your symptoms fail to improve in 5-7 days. You should follow up sooner if your symptoms worsen significan tly or if you develop new symptoms that concern you. [id number] Alessandro Hilton NP [facility] [address] [place] [address] 08/18/2022 16:04:12 08/18/2022 19:23:09 Pain in left foot [id number] 44906 M79.672 Arthritis Vs contusion. Had anemia diagnosed . Not sure why she is getting pain . Strongly encouraged to follow up with PCP. Health Concerns Section Related Observation LastModified by Organization Detai ls LastModified Time None Recorded Concern Status LastModified by Organization Details LastModified Time None Recorded Advance Directives Directive None Recorded Payers Encounter Date Sequence Insurance Name Policy Number Policy Pelaez Covered Member ID Pelaez Member ID Guarantor Name 03/30/2020 1 [employer] - DOS PRIOR TO 2024 - [employer] () Vashti Narvaez [id number] Jen Piriz 06/14/2022 1 [facility] [id number] Vashti Narvaez [id number] Jen Piriz 08/18/2022 1 [facility] [id number] Vashti Narvaez [id number] Jen Piriz Notes Date Note Type Note Provider Name and Address Organization Details Recorded Time 2 text/html Shortness of BreathReported bypatient.source of patient informationsource of patient information patient Timingnew onset; 1 days Additional symptomsfatigue;cough;pain with breathing congestion/cough started today - also today with sharp pains in R shoulder blade area and R ant chest. Exposed to mono about a month ago and has been exhausted for 3 wks. States pains in back and chest aren't as bad now as earlier today when they also hurt with deep breathsWith further questioning pt notes she had multiple fillings placed yesterday BIRDIE GOLDBERG MD [address] [place], [address], [place] - [facility] 06/14/2022 20:01:11 3 text/html Foot/Ankle UCReported bypatient.source of patient informationInformation obtained from patient; Patient arrived at Urgent Care ambulatory; learning styles: visual Location:left Problemswelling Severity:mild Duration:2 days Context:cannot identify Associated Symptoms:no weakness; no numbness; no tingling; no redness; no warmth; no ecchymosis;swelling Aggravating factors:standing; walking Alleviating factors:analgesics Previous InjuryNo prior injury to affected body part Previous Treatmentnone Prior Imaging:none foot Alessandroandrea Hilton NP [address] [place], [address], [place] - [facility] 08/18/2022 19:17:07 OBGyn Episode No OBEpisode recorded.
--- NOTE | 2024-07-18 23:59 | ECG_ITS ---
Test Reason : repeat for poison control Blood Pressure : */* mmHG Vent. Rate : 70 BPM Atrial Rate : 70 BPM P-R Int : 132 ms QRS Dur : 90 ms QT Int : 418 ms P-R-T Axes : 34 46 49 degrees QTcB Int : 451 ms Normal sinus rhythm Normal ECG When compared with ECG of 18-Jul-2024 22:08, No significant change was found Referred By: Generic ED Physician Electronically Signed By: COLE KELLEY MD
[2024-07-19 06:18] VITALS: BP 121/69; PULSE 78; RESP 15; TEMP 36.7; O2SAT 100
--- NOTE | 2024-07-19 07:11 | PC.NURSE ---
late entry Poison control- asked for two ekg and to watch upset stomach provider
--- NOTE | 2024-07-19 10:31 | PC.NURSE ---
Care of Pt assumed at change of shift. Pt rests comfortably with eye closed for the majority of the morning. Father (Arnold) arrives to visit and Pt wakes. Pt requests water at this time. Arnold reports Pt is very timid and will likely refrain from asking for items like food/drink. He inquires about Pts plan and advised that Pt is awaiting CT consult. Arnold expresses that ideally Pt would be set up with detention support--will pass this information along to CT. Arnold supplies his contact informtion and requests to be called with updates; he plans to return home d/t child care director needs.
--- NOTE | 2024-07-19 13:51 | PC.NURSE ---
Care Team at bedside for eval.
[2024-07-19 15:11] VITALS: BP 121/69; PULSE 78; RESP 15; TEMP 36.7; O2SAT 100
--- NOTE | 2024-07-19 16:07 | MHC.CARE ---
Pt was assessed by the CARE team and will discharge home and be referred for 3 day follow up with the [facility] and individual therapy.
== END 2024-07-19 15:12 | disposition home or self-care (01) ==
PROVIDERS: Emergency Provider Emergency Medicine
DX: R45.851 Suicidal ideations (principal); R11.0 Nausea; F41.9 Anxiety disorder, unspecified; Z79.899 Other long term (current) drug therapy
CPT/HCPCS: 36415; 80048; 80076; 80143; 80179; 80307; 81001; 81025; 83735; 85025; 93005; 99285; S9485

== ENCOUNTER → 2024-07-18 22:02 | Outpatient (BNV) | payer OTHER, SELFPAY | PROVIDERS: Emergency Provider Emergency Medicine; Visit Provider Internal Medicine Cardiovascular Disease | DX: T50.902A Poisoning by unspecified drugs, medicaments and biological substances, intentional self-harm, initial encounter (principal) | CPT/HCPCS: 93010 ==